=== PATIENT | female | born 1965 | race African-American/Black ===

== ENCOUNTER 2017-03-04 22:40 | Emergency (ER) | payer SELFPAY ==
[~2017-03-04] VITALS: Ht 180.3 cm; Wt 163.3 kg
[2017-03-04 23:09] LABS: BILIRUBIN,URINE SMALL (NEG); GLUCOSE,URINE NEGATIVE (NEG); NITRITE,URINE NEGATIVE (NEG); PH,URINE 5.5; PROTEIN,URINE 30 mg/dL (NEG-TRACE); UROBILINOGEN,URINE 0.2 mg/dL (0.2 mg/dL)
--- NOTE | 2017-03-04 23:10 | PHYS DOC ---
Past Medical History Past Medical History: Asthma Past Surgical History: Tubal ligation Alcohol Use: Rarely Drug Use: None Adult General Chief Complaint Chief Complaint: VAGINAL BLEEDING HPI HPI Patient is a 51 year old female with no significant medical history who presents today complaining of abnormal vaginal bleeding. Patient states she started her cycle 3 days ago. Patient states she's been passing big clots for the last 3 days. Patient states she believes there is a blood clot stuck in her vagina wall. Patient states she has tried to pull it down with no relief. Patient states she's been soaking 3 feminine pads per day for the last 3 days. Patient denies any chance she is . Denies any concerns for STDs. Denies any urgency frequency dysuria. Patient states she has history of abnormal vaginal bleeding and was told she is going through menopause. Patient denies any abdominal pain nausea vomiting. PCP Dr. Dennise Black Review of Systems Review of Systems Constitutional: Denies fever or chills [] Eyes: Denies change in visual acuity, redness, or eye pain [] HENT: Denies nasal congestion or sore throat [] Respiratory: Denies cough or shortness of breath [] Cardiovascular: No additional information not addressed in HPI [] GI: Abdominal vaginal bleeding : Denies dysuria or hematuria [] Musculoskeletal: Denies back pain or joint pain [] Integument: Denies rash or skin lesions [] Neurologic: Denies headache, focal weakness or sensory changes [] Endocrine: Denies polyuria or polydipsia [] Allergies Allergies Allergies Coded Allergies Type Severity Reaction Last Updated Verified No Known Drug Allergies 11/18/13 No Physical Exam Physical Exam Constitutional: Well developed, well nourished, no acute distress, non-toxic appearance. [] HENT: Normocephalic, atraumatic, bilateral external ears normal, oropharynx moist, no oral exudates, nose normal. [] Eyes: PERRLA, EOMI, conjunctiva normal, no discharge. [] Neck: Normal range of motion, no tenderness, supple, no stridor. [] Cardiovascular:Heart rate regular rhythm, no murmur [] Lungs & Thorax: Bilateral breath sounds clear to auscultation [] Abdomen: Bowel sounds normal, soft, no tenderness, no masses, no pulsatile masses. [] Pelvic exam External pelvic appears normal. Cervix/vaginal vault = there is a small skin tag/tissue in the vaginal vault hard to tell what it is attached to (whether it is the inner vaginal vault or cervix or uterus) no CMT, trace amount of blood in the vaginal vault. Due to body habitus cervix is not visualized No adnexal tenderness. Skin: Warm, dry, no erythema, no rash. [] Back: No tenderness, no CVA tenderness. [] Extremities: No tenderness, no cyanosis, no clubbing, ROM intact, no edema. [] Neurologic: Alert and oriented X 3, normal motor function, normal sensory function, no focal deficits noted. [] Psychologic: Affect normal, judgement normal, mood normal. [] Current Patient Data Vital Signs Vital Signs Date Time Temp Pulse Resp B/P (MAP) Pulse Ox O2 Delivery O2 Flow Rate FiO2 03/04/17 22:51 98.0 117 18 171/90 (117) 98 Room Air 98.0 Lab Values Laboratory Tests Test 03/04/17 22:50 03/04/17 23:30 Urine Color Khloe Urine Clarity Clear Urine pH 5.5 Urine Specific [place] >=1.030 Urine Protein 30 mg/dL (NEG-TRACE) Urine Glucose (UA) Negative mg/dL (NEG) Urine Ketones (Stick) Trace mg/dL (NEG) Urine Blood Large (NEG) Urine Nitrite Negative (NEG) Urine Bilirubin Small (NEG) Urine Urobilinogen Dipstick 0.2 mg/dL (0.2 mg/dL) Urine Leukocyte Esterase Small (NEG) Urine RBC Tntc /HPF (0-2) Urine WBC 11-20 /HPF (0-4) Urine Squamous Epithelial Cells Few /LPF Urine Bacteria Few /HPF (0-FEW) Urine Mucus Mod /LPF White Blood Count 6.8 x10^3/uL (4.0-11.0) Red Blood Count 3.83 x10^6/uL (3.50-5.40) Hemoglobin 9.8 g/dL (12.0-15.5) L Hematocrit 30.9 % (36.0-47.0) L Mean Corpuscular Volume 81 fL (79-100) Mean Corpuscular Hemoglobin 26 pg (25-35) Mean Corpuscular Hemoglobin Concent 32 g/dL (31-37) Red Cell Distribution Width 17.1 % (11.5-14.5) H Platelet Count 375 x10^3/uL (140-400) Neutrophils (%) (Auto) 52 % (31-73) Lymphocytes (%) (Auto) 37 % (24-48) Monocytes (%) (Auto) 7 % (0-9) Eosinophils (%) (Auto) 3 % (0-3) Basophils (%) (Auto) 1 % (0-3) Neutrophils # (Auto) 3.5 x10^3uL (1.8-7.7) Lymphocytes # (Auto) 2.5 x10^3/uL (1.0-4.8) Monocytes # (Auto) 0.5 x10^3/uL (0.0-1.1) Eosinophils # (Auto) 0.2 x10^3/uL (0.0-0.7) Basophils # (Auto) 0.1 x10^3/uL (0.0-0.2) Sodium Level 144 mmol/L (136-145) Potassium Level 3.3 mmol/L (3.5-5.1) L Chloride Level 106 mmol/L (98-107) Carbon Dioxide Level 33 mmol/L (21-32) H Anion Gap 5 (6-14) L Blood Urea Nitrogen 11 mg/dL (7-20) Creatinine 1.0 mg/dL (0.6-1.0) Estimated GFR (Cockcroft-Gault) 71.3 Glucose Level 110 mg/dL (70-99) H Calcium Level 8.2 mg/dL (8.5-10.1) L Laboratory Tests 03/04/17 23:30 Laboratory Tests 03/04/17 23:30 Microbiology 03/04/17 Wet Prep - Final, Complete EKG EKG [] Radiology/Procedures Radiology/Procedures []PROCEDURE: PELVIS W/TV Ultrasound Pelvis Indication: pt c/o abn vag bleeding x 1 year
hx of tubal ligation

Technique: Multiple real-time grayscale images were obtained over the pelvis . Color Doppler imaging was utilized. Comparison: None Findings: The uterus is normal in size measuring 10.2 x 7.2 x 6.5 cm. The endometrium is thickened measuring 16 mm in thickness. There is some low resistance arterial blood flow noted in the endometrial. There is also some heterogeneity of the anterior endometrial border. The right ovary is not visualized. The left ovary measures 2.7 x 2.0 x 1.7 cm. No abnormal left ovarian lesions are identified. Normal blood flow is identified No pelvic free fluid is identified. Impression: Thickened endometrium measuring 16 mm. There is some arterial blood flow associated with the endometrial stripe which demonstrates low resistance waveforms. The endometrial borders are also somewhat ill-defined. For this reason, endometrial neoplasm or submucosal fibroid should be considered. Consider MRI pelvis with and without contrast if further imaging is to be performed. Electronically signed by: Bertin Crawley MD (03/05/2017 12:02 AM) [facility] DICTATED and SIGNED BY: BERTIN CRAWLEY MD DATE: 03/04/17 0098 CC: MEKA DOWELL APRN; NO PCP ~ Course & Med Decision Making Course & Med Decision Making Pertinent Labs and Imaging studies reviewed. (See chart for details) This is a 51-year-old female patient who presents to the ED today complaining of abnormal vaginal bleeding that began 3 days ago as well as complaining of a blood clot in her vaginal vault.On exam there is a small skin tag/tissue in the vaginal vault hard to tell what it is attached (whether it is the inner vaginal vault or cervix or uterus) CBC with hemoglobin of 9.8, hematocrit of 30.9, OTC iron tablets of vitamins recommended. BMP with no acute findings. Wet prep with no acute findings. Urine positive for UTI. Discharged with Bactrim for 3 days. Pelvic ultrasound was noted for thickened endometrium with questionable endometrial neoplasm or fibroids. Recommended MRI. Provided patient an [facility]. Requested she follows up as an outpatient for MRI Dragon Disclaimer Dragon Disclaimer This electronic medical record was generated, in whole or in part, using a voice recognition dictation system. Departure Departure Impression: Primary Impression: Dysfunctional uterine bleeding Additional Impressions: Urinary tract infection Iron deficiency anemia Disposition: HOME, SELF-CARE Condition: STABLE Referrals: NON,STAFF (PCP) MALI MOTA MD Follow-up in the next 1 week Patient Instructions: Urinary Tract Infection, Uterine Bleeding, Dysfunctional , [id number] Additional Instructions: You were seen for dysfunctional uterine bleeding and urinary tract infection. We recommend you follow-up with your [facility] or the provided [facility]ENER or your primary care doctor to have an outpatient MRI because the ultrasound you did was inconclusive in diagnosing fibroids or possibility of endometrial cancer. Come back to the ED if symptoms worsen. Your iron was also low we recommend OTC vitamins or iron with vitamin C. You also have UTI, complete your antibiotics Scripts Pnv Cmb#95/Ferrous Fumarate/Fa ( TABLET) 1 Each Tablet 1 TAB PO DAILY, #90 TAB 3 Refills Prov: MEKA DOWELL APRN 03/05/17 Sulfamethoxazole/Trimethoprim (BACTRIM DS TABLET) 1 Each Tablet 1 TAB PO BID, #6 TAB Prov: MEKA DOWELL APRN 03/05/17 Problem Qualifiers Additional Impressions: Urinary tract infection Urinary tract infection type: acute cystitis Hematuria presence: without hematuria Qualified Codes: N30.00 - Acute cystitis without hematuria Iron deficiency anemia Iron deficiency anemia type: unspecified iron deficiency Qualified Codes: D50.9 - Iron deficiency anemia, unspecified MEKA DOWELL APRN Mar 04, 2017 23:10
[2017-03-04 23:19] LABS: BACTERIA,URINE FEW /HPF (0-FEW); RBC,URINE TNTC /HPF (0-2); SQUAMOUS EPITHELIAL CELL,UR FEW /LPF
[2017-03-04 23:45] LABS: BASO # 0.1 x10^3/uL (0.0-0.2); BASO % 1 % (0-3); EOS % 3 % (0-3); HEMATOCRIT 30.9 % (36.0-47.0); HEMOGLOBIN 9.8 g/dL (12.0-15.5); LYMPH # 2.5 x10^3/uL (1.0-4.8); LYMPH % 37 % (24-48); MEAN CORPUSCULAR HEMOGLOBIN 26 pg (25-35); MEAN CORPUSCULAR HGB CONC 32 g/dL (31-37); MEAN CORPUSCULAR VOLUME 81 fL (79-100); MONO % 7 % (0-9); NEUT % 52 % (31-73); PLATELET COUNT 375 x10^3/uL (140-400); RED BLOOD COUNT 3.83 x10^6/uL (3.50-5.40); RED CELL DISTRIBUTION WIDTH 17.1 % (11.5-14.5); WHITE BLOOD COUNT 6.8 x10^3/uL (4.0-11.0)
[2017-03-04 23:53] LABS: CALCIUM 8.2 mg/dL (8.5-10.1); GFR 71.3; POTASSIUM 3.3 mmol/L (3.5-5.1)
[2017-03-05] VITALS: BP 155/70
--- NOTE | 2017-03-05 00:06 | RAD ---
Ultrasound Pelvis Indication: pt c/o abn vag bleeding x 1 year
hx of tubal ligation

Technique: Multiple real-time grayscale images were obtained over the pelvis . Color Doppler imaging was utilized. Comparison: None Findings: The uterus is normal in size measuring 10.2 x 7.2 x 6.5 cm. The endometrium is thickened measuring 16 mm in thickness. There is some low resistance arterial blood flow noted in the endometrial. There is also some heterogeneity of the anterior endometrial border. The right ovary is not visualized. The left ovary measures 2.7 x 2.0 x 1.7 cm. No abnormal left ovarian lesions are identified. Normal blood flow is identified No pelvic free fluid is identified. Impression: Thickened endometrium measuring 16 mm. There is some arterial blood flow associated with the endometrial stripe which demonstrates low resistance waveforms. The endometrial borders are also somewhat ill-defined. For this reason, endometrial neoplasm or submucosal fibroid should be considered. Consider MRI pelvis with and without contrast if further imaging is to be performed. Electronically signed by: Bertin Crawley MD (03/05/2017 12:02 AM) [facility]
[2017-03-05] MEDS ORDERED: SULF1TAB24 PO (00:23)
[2017-03-05] MEDS ORDERED: PNV1TABL25 PO (00:23)
== END 2017-03-05 00:37 | disposition home or self-care (01) ==
LOC: ER 22:40
DX: N30.00 Acute cystitis without hematuria (principal); N93.8 Other specified abnormal uterine and vaginal bleeding; D50.9 Iron deficiency anemia, unspecified; J45.909 Unspecified asthma, uncomplicated; Z98.51 Tubal ligation status
CPT/HCPCS: 36415; 76830; 76856; 80048; 81001; 85027; 87491; 87591; 99285; Q0111